=== PATIENT | female | born 1945 | race Two or more races ===

== ENCOUNTER 2023-09-23 09:55 | Outpatient (CLI) | payer OTHER | END 2023-09-23 09:58 | disposition home or self-care (01) | LOC: SONOGRAMA 09:55 | PROVIDERS: ATTEND Pathology Anatomic Pathology & Clinical Pathology | DX: D34 Benign neoplasm of thyroid gland (principal); E06.3 Autoimmune thyroiditis; E04.1 Nontoxic single thyroid nodule ==